=== PATIENT | male | born 1985 | race Two or more races ===

== ENCOUNTER 2018-08-16 15:38 | Inpatient (IN) | payer OTHER ==
[2018-08-16] MEDS ORDERED: SODIUM CHLORIDE 1,000 ML IV STA (16:25)
[2018-08-16] MEDS ORDERED: ONDANSETRON 4 MG/2 ML VIAL IVPUSH ONE (16:25)
[2018-08-16] MEDS ORDERED: MAG HYDROX/AL HYDROX/SIMETH 30 ML UNIT-DOSE CUP PO ONE (16:25)
[2018-08-16] MEDS ORDERED: FAMOTIDINE 20 MG/50 ML IVPB 20 MG/50 ML MG IVPB ONE ×2 (16:25→16:32)
--- NOTE | 2018-08-16 16:25 | PDOC ---
History of Present Illness - General Chief Complaint: Pain Stated Complaint: PAIN Time Seen by Provider: 08/16/18 16:06 History Source: Patient - History of Present Illness Quality: reports: severe Past History - Past Medical History Allergies/Adverse Reactions: Allergies Allergy/AdvReac Type Severity Reaction Status Date / Time No Known Allergies Allergy Verified 08/16/18 15:47 Home Medications: Ambulatory Orders Amoxicillin/Potassium Clav [Augmentin 875-125 Tablet] 1 each PO BID #10 tablet 08/18/18 COPD: No - Suicide/Smoking/Psychosocial Hx Smoking History: Never smoked Review of Systems - Review of Systems Constitutional: No: Chills, Fever Respiratory: No: Shortness of Breath Cardiac (ROS): No: Chest Pain ABD/GI: Yes: Nausea, Vomiting. No: Constipated, Diarrhea, Rectal Bleeding, Tarry Stools : No: Dysuria Musculoskeletal: No: Back Pain *Physical Exam - Vital Signs Last Vital Signs Temp Pulse Resp BP Pulse Ox 98 F 78 18 147/78 100 08/16/18 15:44 08/16/18 15:44 08/16/18 15:44 08/16/18 15:44 08/16/18 15:44 - Physical Exam Comments: 08/16/18 17:01 Pt appears pale and very uncomfortable General Appearance: Yes: Appropriately Dressed, Severe Distress HEENT: positive: Normal Voice Neck: positive: Supple Respiratory/Chest: positive: Lungs Clear, Normal Breath Sounds. negative: Respiratory Distress Cardiovascular: positive: Regular Rate, S1, S2 Gastrointestinal/Abdominal: positive: Normal Bowel Sounds, Tender (isg tto to mid upper abd, NT over RUQ and RLQ). negative: Distended, Guarding Male Genitalia: positive: normal genitalia. negative: discharge, testicular tenderness, testicular mass Musculoskeletal: negative: CVA Tenderness Integumentary: positive: Dry, Warm Neurologic: positive: Fully Oriented, Alert, Normal Mood/Affect Moderate Sedation - Procedure Monitoring Vital Signs: Procedure Monitoring Vital Signs Temperature 98 F 08/16/18 15:44 Pulse Rate 78 08/16/18 15:44 Respiratory Rate 18 08/16/18 15:44 Blood Pressure 147/78 08/16/18 15:44 O2 Sat by Pulse Oximetry (%) 100 08/16/18 15:44 ED Treatment Course - LABORATORY CBC & Chemistry Diagram: 08/18/18 06:00 03/19/19 06:00 Medical Decision Making - Medical Decision Making 08/16/18 16:57 42-year-old male, no significant history here with severe upper abdominal pain that started one hour after eating a pastrami sandwich today. Has had about 7 episodes of nausea, vomiting. No hematemesis, diarrhea, constipation, melena, bright blood per rectum, dysuria, testicular pain, swelling, discharge fever or chills. No history of similar episode. Denies excessive alcohol or NSAID use see exam Possible gastritis/GERD, vs biliary source vs pancreatitis vs appy (though NT over mcburneys), perf viscous considered given degree of discomfort/pale skin Stable w/ sig ttp to mid upper abd -pain control -zofran -IVF -labs -KUB -?US or CT -dispo pending w/u 08/16/18 17:33 WBC 16.7 Pt continues c/o pain despite attempt at pain control. CT pening, continue to manage pain 08/16/18 19:00 Per radiology staff, IV machine is down and unable to administer IV contrast to pts at this time. Discussed with Dr. Reyes, who recommends dry CT at this time. Patient signed out to [facility] Angel pending CT *DC/Admit/Observation/Transfer Diagnosis at time of Disposition: Acute appendicitis - Discharge Dispostion Condition at time of disposition: Stable - Referrals - Patient Instructions - Post Discharge Activity
[2018-08-16] MEDS ORDERED: ONDANSETRON 4 MG/2 ML VIAL ONE (16:32)
[2018-08-16 16:44] LABS: BASO % 0.2 % (0-2.0); EOS % 0.5 % (0-4.5); HEMATOCRIT 44.9 % (35.4-49); HEMOGLOBIN 15.7 GM/dL (11.7-16.9); LYMPH % 9.4 % (8-40); MCH 32.1 pg (25.7-33.7); MCHC 35.1 g/dl (32.0-35.9); MEAN CELL VOLUME 91.6 fl (80-96); MEAN PLT VOLUME 9.5 fl (7.5-11.1); MONO % 2.8 % (3.8-10.2); NEUT % 87.1 % (42.8-82.8); PLATELET COUNT 237 K/MM3 (134-434); RDW 13.1 % (11.9-15.9); WHITE BLOOD COUNT 16.7 K/mm3 (4.0-10.0)
[2018-08-16 17:20] LABS: ALBUMIN 4.4 g/dl (3.4-5.0); ALK PHOS 112 U/L (45-117); ANION GAP 7 MMOL/L (8-16); BILIRUBIN,TOTAL 0.4 mg/dL (0.2-1); BLOOD UREA NITROGEN 24 mg/dL (7-18); CALCIUM 8.8 mg/dL (8.5-10.1); CHLORIDE 107 mmol/L (98-107); CO2 27 mmol/L (21-32); CREATININE 0.8 mg/dL (0.55-1.3); GLUCOSE,RANDOM 154 mg/dL (74-106); LIPASE 106 U/L (73-393); POTASSIUM 4.2 mmol/L (3.5-5.1); SGOT/AST 26 U/L (15-37); SGPT/ALT 62 U/L (13-61); SODIUM 140 mmol/L (136-145); TOT PROT 8.1 g/dl (6.4-8.2)
[2018-08-16] MEDS ORDERED: morphine CARPU-JECT 4 MG/1 ML DISP.SYRIN IVPUSH ONE (17:31)
[2018-08-16] MEDS ORDERED: morphine SULFATE 4 MG/ML VIAL ONE (17:33)
[2018-08-16] MEDS ORDERED: MAG HYDROX/AL HYDROX/SIMETH 30 ML UNIT-DOSE CUP ONE (18:40)
[2018-08-16 20:20] LABS: URINE APPEARANCE CLEAR; URINE BILIRUBIN NEGATIVE (<2.0 mg/dL); URINE COLOR LTYELLOW; URINE GLUCOSE (UA) NEGATIVE (NEGATIVE); URINE KETONE NEGATIVE (NEGATIVE); URINE LEUK ESTERASE NEGATIVE (NEGATIVE); URINE NITRITE NEGATIVE (NEGATIVE); URINE PROTEIN NEGATIVE (NEGATIVE); URINE UROBILINOGEN NEGATIVE mg/dL (0.2-1.0)
--- NOTE | 2018-08-16 20:44 | PN ---
Teaching Attending Note Name of Resident: Nathaniel Bermeo ATTENDING PHYSICIAN STATEMENT I saw and evaluated the patient. I reviewed the resident's note and discussed the case with the resident. I agree with the resident's findings and plan as documented. SUBJECTIVE: Patient is a 42-year-old man with no significant PMH who presents with severe periumblical and suprapubic abdominal pain that started one hour after eating a pastrami sandwich today. Has had about 7 episodes of nausea and vomiting. His pain was not relieved by bowel movement. No hematemesis, diarrhea, constipation , melena, bright blood per rectum, dysuria, testicular pain, swelling, discharge fever or chills. No history of similar episode. Denies excessive alcohol or NSAID use. CT scan of the abdomen was done without contrast because the contrast injector is not working. OBJECTIVE: Alert Vital Signs Period Temp Pulse Resp BP Sys/Benz Pulse Ox Last 24 Hr 97.7 F-98 F 69-78 16-18 126-147/75-78 98-100 HEENT: No Jaundice, eye redness or discharge, PERRLA, EOMI. Normocephalic, atraumatic. External ears are normal and hearing is grossly intact. No nasal discharge. Neck: Supple, nontender. No palpable adenopathy or thyromegaly. No JVD Chest: Good effort. Clear to auscultation and percussion. Heart: Regular. No S3, rub or murmur Abdomen: Not distended, soft, periumblical and suprapubic tenderness and no HSM. No rebound or guarding. Normal bowel sounds. Ext: Peripheral pulses intact. No leg edema. Skin: Warm and dry. No petechiae, rash or ecchymosis. Neuro: Alert. Oriented x3. CN 2-12 grossly intact. Sensation grossly intact in all four extremities and DTR are symmetric. Psych: Appropriate mood and affect. Good insight. Current Medications Generic Name Dose Route Start Last Admin Trade Name Freq PRN Reason Stop Dose Admin Ceftriaxone Sodium 1 gm/ 50 mls @ 100 mls/hr 08/16/18 20:45 Dextrose IVPB DAILY LEANNA Metronidazole 500 mg in 100 mls @ 100 mls/hr 08/16/18 21:00 Flagyl 500mg Premixed Ivpb - IVPB Q6H-IV LEANNA Abnormal Lab Results 08/16/18 08/16/18 16:30 16:30 WBC 16.7 H Absolute Neuts (auto) 14.5 H Neutrophils % 87.1 H Monocytes % 2.8 L Anion Gap 7 L BUN 24 H Random Glucose 154 H ALT 62 H ASSESSMENT AND PLAN: 1. Abdominal pain - CT scan of the abdomen with out contrast has features consistent with acute appendicitis. Patient being kept NPO, started on IV Flagyl and Rocephin. EKG and INR pending. IV NS at 75 ml/hour and IV morphine for pain control. Surgery consulted. Has strong family history of DM (mother and sister) so will check HA1c. 2. Obesity Counseled on the risks associated with obesity. Will provide patient all the necessary assistance, counseling and positive reinforcement to facilitate weight loss. Consult supervisor press room. 3. DVT prophylaxis - Lovenox 40 mg SQ q 24 hours. 4. Advance directives - Full code
--- NOTE | 2018-08-16 20:44 | HP ---
CHIEF COMPLAINT: sever abdominal pain with N/V PCP:None HISTORY OF PRESENT ILLNESS: 32 year old male with no pmhx and no PCP presented with sever lisa umbilical pain 11/09 started around 3 pm , with sever nausea and NBNB vomiting , started after pasterma sandwich , the pain is local non radiating , no fever but report chills Denies any history of constipation, diarrhea , back pain , joint pain , headache , chest pain , sob, coughing or any sick contact no previous history , no sick contact or recent travel ER course was notable for: (1)CT Abdomen without contrast as IV machine is not working (2)CBC, CMP (3)Surgery consult Recent Travel: denies PAST MEDICAL HISTORY: None PAST SURGICAL HISTORY: left thumb surgery Social History: Smoking:denies Alcohol:socially Drugs: denies Family History: Mother and sister with DM Allergies No Known Allergies Allergy (Verified 08/16/18 15:47) HOME MEDICATIONS: REVIEW OF SYSTEMS CONSTITUTIONAL: Absent: fever, chills, diaphoresis, generalized weakness, malaise, loss of appetite, weight change HEENT: Absent: rhinorrhea, nasal congestion, throat pain, throat swelling, difficulty swallowing, mouth swelling, ear pain, eye pain, visual changes CARDIOVASCULAR: Absent: chest pain, syncope, palpitations, irregular heart rate, lightheadedness , peripheral edema RESPIRATORY: Absent: cough, shortness of breath, dyspnea with exertion, orthopnea, wheezing, stridor, hemoptysis GASTROINTESTINAL: Absent: abdominal pain, abdominal distension, nausea, vomiting, diarrhea, constipation, melena, hematochezia GENITOURINARY: Absent: dysuria, frequency, urgency, hesitancy, hematuria, flank pain, genital pain MUSCULOSKELETAL: Absent: myalgia, arthralgia, joint swelling, back pain, neck pain SKIN: Absent: rash, itching, pallor HEMATOLOGIC/IMMUNOLOGIC: Absent: easy bleeding, easy bruising, lymphadenopathy, frequent infections ENDOCRINE: Absent: unexplained weight gain, unexplained weight loss, heat intolerance, cold intolerance NEUROLOGIC: Absent: headache, focal weakness or paresthesias, dizziness, unsteady gait, seizure, mental status changes, bladder or bowel incontinence PSYCHIATRIC: Absent: anxiety, depression, suicidal or homicidal ideation, hallucinations. PHYSICAL EXAMINATION Vital Signs - 24 hr 08/16/18 08/16/18 15:44 20:05 Temperature 98 F 97.7 F Pulse Rate 78 Pulse Rate [ 69 Left Radial] Respiratory 18 16 Rate Blood Pressure 147/78 Blood Pressure 126/75 [Left Arm] O2 Sat by Pulse 100 98 Oximetry (%) GENERAL: AAOx3 in NAD HEAD: NC/AT EYES: EOMI, Conjunctiva clear, sclera anicteric ENT: moist mucous membrane NECK: Supple, no JVD LUNGS: CTA B/L, no crackles no wheezing no accessory muscle use. HEART: RRR, NSR, normal s1, s2, murmur no M/R/G ABDOMEN: Soft, ND, lisa umbilical pain and suprapubic tenderness, +BS 4 Q, no CVA Tenderness, Pswas negative LOWER EXTREMITIES: no edema, +2DP pulse, NEUROLOGICAL: No focal deficit. Normal speech. gait not observed. PSYCHIATRIC: Cooperative. Good eye contact. Appropriate mood and affect. SKIN: Warm, dry, Laboratory Results - last 24 hr 08/16/18 08/16/18 08/16/18 16:30 16:30 20:05 WBC 16.7 H RBC 4.90 Hgb 15.7 Hct 44.9 MCV 91.6 MCH 32.1 MCHC 35.1 RDW 13.1 Plt Count 237 MPV 9.5 Absolute Neuts (auto) 14.5 H Neutrophils % 87.1 H Lymphocytes % 9.4 Monocytes % 2.8 L Eosinophils % 0.5 Basophils % 0.2 Nucleated RBC % 0 Sodium 140 Potassium 4.2 Chloride 107 Carbon Dioxide 27 Anion Gap 7 L BUN 24 H Creatinine 0.8 Creat Clearance w eGFR 110.66 Random Glucose 154 H Calcium 8.8 Total Bilirubin 0.4 AST 26 ALT 62 H Alkaline Phosphatase 112 Total Protein 8.1 Albumin 4.4 Lipase 106 Urine Color Ltyellow Urine Appearance Clear Urine pH 6.0 Ur Specific [place] 1.020 Urine Protein Negative Urine Glucose (UA) Negative Urine Ketones Negative Urine Blood Negative Urine Nitrite Negative Urine Bilirubin Negative Urine Urobilinogen Negative Ur Leukocyte Esterase Negative CBC, BMP 08/16/18 16:30 08/16/18 16:30 ASSESSMENT/PLAN: 32 year old male with no PMhx and no PCP presented with periumbilical pain with N/V x5 admitted for acute appendicities #Abdominal pain due to Acute appendicites * Periumbilical pain , with N/V , WBC 16.7 , no fever * CT A/P without contrast noticed on imaging rehabilitation therapy technician * NPO * Type and screen * PT, PTT * EKG * CXR * IV fluids RL @ 125 * Surgery consulted , OR in AM * Morphine for pain * Zofran for Nausea # Elevated blood sugar * check A1c * BGM ACHS # FEN * F: LR@ 125 * E: monitor * N: NPO # DVTS: SCDS ; Hep SQ TID stop in AM for Surgery # Dispo * Med surg # Full code Visit type - Emergency Visit Emergency Visit: Yes Care time: The patient presented to the Emergency Department on the above date and was hospitalized for further evaluation of their emergent condition. - New Patient This patient is new to me today: Yes Date on this admission: 08/16/18 - Critical Care Critical Care patient: No
[2018-08-16] MEDS ORDERED: CEFTRIAXONE 1 GM/50 ML BAG ONE (21:05)
[2018-08-16] MEDS: CEFTRIAXONE 1 GM in DEXTROSE 5%-WATER - 50 ML IVPB SCH (21:10)
[2018-08-16] MEDS ORDERED: ONDANSETRON 4 MG/2 ML VIAL IVPUSH PRN (21:19)
--- NOTE | 2018-08-16 21:43 | PDOC ---
*Physical Exam - Vital Signs Last Vital Signs Temp Pulse Resp BP Pulse Ox 97.7 F 69 16 126/75 98 08/16/18 20:05 08/16/18 20:05 08/16/18 20:05 08/16/18 20:05 08/16/18 20:05 ED Treatment Course - LABORATORY CBC & Chemistry Diagram: 08/16/18 16:30 08/16/18 16:30 - ADDITIONAL ORDERS Additional order review: Laboratory Results 08/16/18 08/16/18 20:05 16:30 Sodium 140 Potassium 4.2 Chloride 107 Carbon Dioxide 27 Anion Gap 7 L BUN 24 H Creatinine 0.8 Creat Clearance w eGFR 110.66 Random Glucose 154 H Calcium 8.8 Total Bilirubin 0.4 AST 26 ALT 62 H Alkaline Phosphatase 112 Total Protein 8.1 Albumin 4.4 Lipase 106 Urine Color Ltyellow Urine Appearance Clear Urine pH 6.0 Ur Specific [place] 1.020 Urine Protein Negative Urine Glucose (UA) Negative Urine Ketones Negative Urine Blood Negative Urine Nitrite Negative Urine Bilirubin Negative Urine Urobilinogen Negative Ur Leukocyte Esterase Negative 08/16/18 16:30 RBC 4.90 MCV 91.6 MCHC 35.1 RDW 13.1 MPV 9.5 Neutrophils % 87.1 H Lymphocytes % 9.4 Monocytes % 2.8 L Eosinophils % 0.5 Basophils % 0.2 - Medications Given in the ED: ED Medications Discontinued Medications Generic Name Dose Route Start Last Admin Trade Name Butchq PRN Reason Stop Dose Admin Al Hydroxide/Mg Hydroxide 30 ml 08/16/18 16:25 08/16/18 18:37 Mylanta Oral Suspension - PO 08/16/18 16:26 30 ml ONCE ONE Administration Famotidine/Sodium Chloride 20 mg in 50 mls @ 100 mls/hr 08/16/18 16:25 16:41 Pepcid 20 Mg Premixed Ivpb - IVPB 08/16/18 16:54 100 mls/hr ONCE ONE Administration Sodium Chloride 1,000 mls @ 1,000 mls/hr 08/16/18 16:25 08/16/18 16:41 Normal Saline - IV 08/16/18 17:24 1,000 mls/hr ASDIR STA Administration Morphine Sulfate 4 mg 08/16/18 17:31 08/16/18 17:42 Morphine Injection - IVPUSH 08/16/18 17:32 4 mg ONCE ONE Administration Ondansetron HCl 4 mg 08/16/18 16:25 08/16/18 16:41 Zofran Injection IVPUSH 08/16/18 16:26 4 mg ONCE ONE Administration Medical Decision Making - Medical Decision Making 08/16/18 21:35 Patient endoresed to me to follow the CT scan CT scan reviewed impression: Appendicolith noted at the level of the neck of the appendix. The appendix is distended with fluid with a secondary small non-obstructing appendicolith also noted. No periappendiceal inflammatory changes evident. No extra Lumenator ear or abscess formation identified. Findings concerning for early acute appendicitis with tubular mucocele related to obstructing appendicolith. Clinical correlation advised. Surgery consulted case was discussed with Dr. Roth. He will put orders for antibiotics. Recommend that patient be admitted to the hospitalist on nothing by mouth after midnight for surgery in the morning. *DC/Admit/Observation/Transfer Diagnosis at time of Disposition: Acute appendicitis Qualifiers: Acute appendicitis type: unspecified acute appendicitis type Qualified Code(s) : K35.80 - Unspecified acute appendicitis - Discharge Dispostion Condition at time of disposition: Stable Decision to Admit order: Yes - Referrals - Patient Instructions - Post Discharge Activity
[2018-08-16] MEDS: LACTATED RINGERS SOLUTION 1,000 ML IV SCH (22:53)
[2018-08-17 00:58] VITALS: BMI 34.7
[2018-08-17] MEDS: LACTATED RINGERS SOLUTION 1,000 ML IV SCH ×2 (01:42→10:19)
[2018-08-17] MEDS: MORPHINE SULFATE 2 MG/ML VIAL IVPUSH PRN ×2 (03:45→10:27)
[2018-08-17] MEDS: HEPARIN NA (PORCINE) 5,000 UNITS/ML 1ML VIAL SQ SCH ×3 (05:57→22:13)
[2018-08-17 07:49] LABS: BASO % 0.2 % (0-2.0); EOS % 0.1 % (0-4.5); HEMATOCRIT 39.9 % (35.4-49); LYMPH % 6.7 % (8-40); MCH 31.5 pg (25.7-33.7); MCHC 35.1 g/dl (32.0-35.9); MEAN CELL VOLUME 89.8 fl (80-96); MEAN PLT VOLUME 8.9 fl (7.5-11.1); MONO % 6.5 % (3.8-10.2); NEUT % 86.5 % (42.8-82.8); PLATELET COUNT 216 K/MM3 (134-434); RBC 4.44 M/mm3 (4.00-5.60); RDW 12.9 % (11.9-15.9); WHITE BLOOD COUNT 18.7 K/mm3 (4.0-10.0)
[2018-08-17 08:22] LABS: ALBUMIN 3.9 g/dl (3.4-5.0); ALK PHOS 98 U/L (45-117); AMYLASE 48 U/L (25-115); ANION GAP 7 MMOL/L (8-16); BILIRUBIN,TOTAL 0.5 mg/dL (0.2-1); BLOOD UREA NITROGEN 13 mg/dL (7-18); CALCIUM 8.5 mg/dL (8.5-10.1); CHLORIDE 106 mmol/L (98-107); CO2 24 mmol/L (21-32); CREATININE 0.7 mg/dL (0.55-1.3); GLUCOSE,RANDOM 133 mg/dL (74-106); LIPASE 101 U/L (73-393); MAGNESIUM 2.1 mg/dL (1.8-2.4); PHOSPHOROUS 3.2 mg/dL (2.5-4.9); POTASSIUM 3.7 mmol/L (3.5-5.1); SGOT/AST 14 U/L (15-37); SGPT/ALT 47 U/L (13-61); SODIUM 137 mmol/L (136-145); TOT PROT 7.1 g/dl (6.4-8.2)
[2018-08-17 08:23] LABS: INR 1.1 (0.83-1.09)
[2018-08-17 08:26] LABS: ACTIVATED PTT 32.6 SECONDS (25.2-36.5)
[2018-08-17] MEDS ORDERED: cefTRIAXone SODIUM 1 GM VIAL ONE (08:53)
[2018-08-17] MEDS ORDERED: DEXTROSE 5%-WATER - 50 ML IVPB ONE (08:53)
[2018-08-17] MEDS ORDERED: FLU VACCINE QUAD 60 MCG/0.5 ML (MDV 18-19) IM ONE (10:00)
[2018-08-17] MEDS ORDERED: PNEUMOC 13-VAL CONJ-DIP CRM/PF 0.5 ML DISP.SYRIN IM ONE (10:00)
[2018-08-17] MEDS ORDERED: PNEUMOCOCCAL 23 VACCINE 0.5 ML VIAL IM ONE (10:00)
[2018-08-17] MEDS ORDERED: CEFTRIAXONE 1 GM in DEXTROSE 5%-WATER - 100 ML IVPB SCH (10:00)
[2018-08-17] MEDS: CEFTRIAXONE 1 GM in DEXTROSE 5%-WATER - 50 ML IVPB SCH (10:19)
[2018-08-17] MEDS ORDERED: ONDANSETRON 4 MG/2 ML VIAL IVPUSH PRN ×3 (11:43→16:42)
[2018-08-17] MEDS ORDERED: LACTATED RINGERS SOLUTION 1,000 ML IV SCH ×3 (11:45→16:42)
[2018-08-17] MEDS ORDERED: PROPOFOL 20 ML ONE ×2 (12:07→14:20)
[2018-08-17] MEDS ORDERED: fentaNYL CITRATE 250 MCG/5 ML VIAL ONE (12:07)
[2018-08-17] MEDS ORDERED: MIDAZOLAM HCL 2 MG/2 ML SINGLE DOSE VIAL ONE ×2 (12:07→14:21)
[2018-08-17] MEDS ORDERED: ROCURONIUM BROMIDE 50 MG/5 ML VIAL ONE ×2 (12:07→14:20)
[2018-08-17] MEDS ORDERED: LIDOCAINE HCL/PF 2% SDV 5ML VIAL ONE (12:08)
[2018-08-17] MEDS ORDERED: DEXAMETHASONE SOD PHOSPHATE 4 MG/1 ML VIAL ONE ×3 (12:08→15:32)
[2018-08-17] MEDS ORDERED: BUPIVACAINE HCL/PF 0.5% (5MG/ML) 10 ML VIAL IJ ONE (13:04)
[2018-08-17] MEDS ORDERED: BUPIVACAINE HCL/PF 0.5% (5MG/ML) 10 ML VIAL ONE (14:12)
--- NOTE | 2018-08-17 14:15 | PN ---
Physical Exam: SUBJECTIVE: Patient seen and examined at bedside no acute events overnight patient states he is having 7/10 pain and slgiht nausea; denies any CP/SOB/F or chills OBJECTIVE: Vital Signs Period Temp Pulse Resp BP Sys/Benz Pulse Ox Last 24 Hr 97.5 F-98.5 F 63-78 16-20 110-147/61-80 96-100 GENERAL: The patient is awake, alert, and fully oriented, in no acute distress. EYES: PEERLA: EOMI; no scleral icterus NECK: no JVD; no lymphadenopathy LUNGS: CTA B/L; no rales, rhonchi or wheezing HEART: Regular rate and rhythm, S1, S2 without murmur, rub or gallop. ABDOMEN: Soft, RLQ tenderness upon palpationl + rovisngs +BS. EXTREMITIES: 2+ pulses, warm, well-perfused, no edema. PSYCH: Normal mood, normal affect. SKIN: Warm, dry, normal turgor, no rashes or lesions noted Laboratory Results - last 24 hr 08/16/18 08/16/18 08/16/18 16:30 16:30 20:05 WBC 16.7 H RBC 4.90 Hgb 15.7 Hct 44.9 MCV 91.6 MCH 32.1 MCHC 35.1 RDW 13.1 Plt Count 237 MPV 9.5 Absolute Neuts (auto) 14.5 H Neutrophils % 87.1 H Lymphocytes % 9.4 Monocytes % 2.8 L Eosinophils % 0.5 Basophils % 0.2 Nucleated RBC % 0 PT with INR INR PTT (Actin FS) Sodium 140 Potassium 4.2 Chloride 107 Carbon Dioxide 27 Anion Gap 7 L BUN 24 H Creatinine 0.8 Creat Clearance w eGFR 110.66 POC Glucometer Random Glucose 154 H Hemoglobin A1c % Calcium 8.8 Phosphorus Magnesium Total Bilirubin 0.4 AST 26 ALT 62 H Alkaline Phosphatase 112 Total Protein 8.1 Albumin 4.4 Total Amylase Lipase 106 Urine Color Ltyellow Urine Appearance Clear Urine pH 6.0 Ur Specific [place] 1.020 Urine Protein Negative Urine Glucose (UA) Negative Urine Ketones Negative Urine Blood Negative Urine Nitrite Negative Urine Bilirubin Negative Urine Urobilinogen Negative Ur Leukocyte Esterase Negative Blood Type Antibody Screen 08/17/18 08/17/18 08/17/18 06:00 06:40 06:40 WBC 18.7 H RBC 4.44 Hgb 14.0 Hct 39.9 MCV 89.8 MCH 31.5 MCHC 35.1 RDW 12.9 Plt Count 216 MPV 8.9 Absolute Neuts (auto) 16.2 H Neutrophils % 86.5 H Lymphocytes % 6.7 L D Monocytes % 6.5 D Eosinophils % 0.1 Basophils % 0.2 Nucleated RBC % 0 PT with INR INR PTT (Actin FS) Sodium Potassium Chloride Carbon Dioxide Anion Gap BUN Creatinine Creat Clearance w eGFR POC Glucometer 124 Random Glucose Hemoglobin A1c % 6.0 Calcium Phosphorus Magnesium Total Bilirubin AST ALT Alkaline Phosphatase Total Protein Albumin Total Amylase Lipase Urine Color Urine Appearance Urine pH Ur Specific [place] Urine Protein Urine Glucose (UA) Urine Ketones Urine Blood Urine Nitrite Urine Bilirubin Urine Urobilinogen Ur Leukocyte Esterase Blood Type Antibody Screen 08/17/18 08/17/18 08/17/18 06:40 06:40 06:40 WBC RBC Hgb Hct MCV MCH MCHC RDW Plt Count MPV Absolute Neuts (auto) Neutrophils % Lymphocytes % Monocytes % Eosinophils % Basophils % Nucleated RBC % PT with INR 13.00 INR 1.10 H PTT (Actin FS) 32.6 Sodium 137 Potassium 3.7 Chloride 106 Carbon Dioxide 24 Anion Gap 7 L BUN 13 Creatinine 0.7 Creat Clearance w eGFR 129.09 POC Glucometer Random Glucose 133 H Hemoglobin A1c % Calcium 8.5 Phosphorus 3.2 Magnesium 2.1 Total Bilirubin 0.5 AST 14 L ALT 47 Alkaline Phosphatase 98 Total Protein 7.1 Albumin 3.9 Total Amylase 48 Lipase 101 Urine Color Urine Appearance Urine pH Ur Specific [place] Urine Protein Urine Glucose (UA) Urine Ketones Urine Blood Urine Nitrite Urine Bilirubin Urine Urobilinogen Ur Leukocyte Esterase Blood Type O POSITIVE Antibody Screen Negative 08/17/18 09:32 WBC RBC Hgb Hct MCV MCH MCHC RDW Plt Count MPV Absolute Neuts (auto) Neutrophils % Lymphocytes % Monocytes % Eosinophils % Basophils % Nucleated RBC % PT with INR INR PTT (Actin FS) Sodium Potassium Chloride Carbon Dioxide Anion Gap BUN Creatinine Creat Clearance w eGFR POC Glucometer Random Glucose Hemoglobin A1c % Calcium Phosphorus Magnesium Total Bilirubin AST ALT Alkaline Phosphatase Total Protein Albumin Total Amylase Lipase Urine Color Urine Appearance Urine pH Ur Specific [place] Urine Protein Urine Glucose (UA) Urine Ketones Urine Blood Urine Nitrite Urine Bilirubin Urine Urobilinogen Ur Leukocyte Esterase Blood Type O POSITIVE Antibody Screen Active Medications Generic Name Dose Route Start Last Admin Trade Name Freq PRN Reason Stop Dose Admin Fentanyl 50 mcg 08/17/18 11:43 Sublimaze Injection - IVPUSH [id number] PRN PAIN-PACU ORDER X 4 DOSES ONLY Heparin Sodium (Porcine) 5,000 unit 08/17/18 06:00 08/17/18 05:57 Heparin - SQ Not Given TID LEANNA Ceftriaxone Sodium 1 gm/ 50 mls @ 100 mls/hr 08/16/18 20:45 08/17/18 10:19 Dextrose IVPB 100 mls/hr DAILY LEANNA Administration Metronidazole 500 mg in 100 mls @ 100 mls/hr 08/16/18 21:00 08/17/18 09:09 Flagyl 500mg Premixed Ivpb - IVPB 100 mls/hr Q6H-IV LEANNA Administration Lactated Ringer's 1,000 mls @ 125 mls/hr 08/16/18 21:30 08/17/18 10:19 Lactated Ringers Solution IV 125 mls/hr ASDIR LEANNA Administration Lactated Ringer's 1,000 mls @ 75 mls/hr 08/17/18 11:45 Lactated Ringers Solution IV ASDIR LEANNA Morphine Sulfate 2 mg 08/16/18 21:19 08/17/18 10:27 Morphine Sulfate IVPUSH 2 mg Q4H PRN Administration PAIN LEVEL 6-10 Ondansetron HCl 4 mg 08/16/18 21:19 Zofran Injection IVPUSH Q6H PRN NAUSEA Ondansetron HCl 4 mg 08/17/18 11:43 Zofran Injection IVPUSH Q6H PRN NAUSEA AND/OR VOMITING ASSESSMENT/PLAN: 32 year old male with no PMhx and no PCP presented with periumbilical pain with N/V x5 admitted for acute appendicities #Abdominal pain due to Acute appendicitis * WBC this AM 18.7 * on ceftriaxone and flagyl * IV fluids RL @ 125 * Morphine for pain * Zofran for Nausea * OR this AM * # Elevated blood sugar * check A1c - came back at 6 * BGM ACHS # FEN * F: LR@ 125 * E: monitor * N: NPO * # DVTS: SCDS ; Hep SQ TID stop in AM for Surgery # Dispo * Med surg # Full code Problem List - Problems (1) Appendicitis Code(s): K37 - UNSPECIFIED APPENDICITIS Visit type - Emergency Visit Emergency Visit: Yes ED Registration Date: 08/16/18 Care time: The patient presented to the Emergency Department on the above date and was hospitalized for further evaluation of their emergent condition. - New Patient This patient is new to me today: Yes Date on this admission: 08/17/18 - Critical Care Critical Care patient: No
[2018-08-17] MEDS ORDERED: SUCCINYLCHOLINE CHLORIDE 200 MG/10 ML VIAL ONE (14:20)
--- NOTE | 2018-08-17 15:06 | PN ---
Progress Note (short form) - Note Progress Note: surgery pt seen and examined. full consult dictated. 32m admitted for acute appendicitis. wbc 16, started on rocephin, wbc 18 today. still with pain. no fever. abd- soft, mild distension, localized rlq tenderness. Plan- acute appendicitis. minimal response to abx. will proceed with surgery.
[2018-08-17] MEDS ORDERED: morphine SULFATE 4 MG/ML VIAL IVPB PRN (15:08)
[2018-08-17] MEDS ORDERED: ACETAMINOPHEN 325 MG TABLET (FP) PO PRN (15:08)
[2018-08-17] MEDS ORDERED: oxyCODONE HCL 5 MG TABLET PO PRN (15:08)
[2018-08-17] MEDS ORDERED: IBUPROFEN 800 MG/8 ML IJ IVPB PRN (15:09)
--- NOTE | 2018-08-17 15:11 | OP ---
Operative Note - Note: Operative Date: 08/17/18 Pre-Operative Diagnosis: acute appendicitis Operation: laparoscopic appendectomy, lavage Findings: suppurative appendicitis Post-Operative Diagnosis: Same as Pre-op Surgeon: Tye Schwartz Anesthesiologist/[facility] DIRECTOR: Reynaldo Abad Anesthesia: General Specimens Removed: appendix Estimated Blood Loss (mls): 10 Operative Report Dictated: Yes
[2018-08-17] MEDS ORDERED: KETOROLAC TROMETHAMINE 30 MG/1 ML VIAL ONE (15:41)
[2018-08-17] MEDS ORDERED: GLYCOPYRROLATE 0.2 MG/1 ML VIAL ONE (15:57)
--- NOTE | 2018-08-17 16:02 | PN ---
Progress Note (short form) - Note Progress Note: surgery s/p laparoscopic appendectomy. full liquids. cont iv abx. if patient tolerates diet without fever can likely be discharged Friday with 5 days aumentin on a regular diet. ok to shower. no lifting. 2 weeks off work. f/u in 2 weeks. [phone]
--- NOTE | 2018-08-17 17:43 | PN ---
Teaching Attending Note Name of Resident: Monique Aaron ATTENDING PHYSICIAN STATEMENT I saw and evaluated the patient. I reviewed the resident's note and discussed the case with the resident. I agree with the resident's findings and plan as documented. SUBJECTIVE: Patient is comfortable with no acute distress. mild pain , no fever or chills. no shortness of breath. OBJECTIVE: Vital Signs Temperature 98.1 F 08/17/18 16:11 Pulse Rate 73 08/17/18 17:40 Respiratory Rate 18 08/17/18 17:40 Blood Pressure 102/59 L 08/17/18 17:40 O2 Sat by Pulse Oximetry (%) 96 08/17/18 17:40 GENERAL: The patient is awake, alert, and fully oriented, in no acute distress. EYES: PEERLA: EOMI; no scleral icterus NECK: no JVD; no lymphadenopathy LUNGS: CTA B/L; no rales, rhonchi or wheezing HEART: Regular rate and rhythm, S1, S2 without murmur, rub or gallop. ABDOMEN: Soft, mild RLQ tenderness on palpation. l EXTREMITIES: 2+ pulses, warm, well-perfused, no edema. PSYCH: Normal mood, normal affect. SKIN: Warm, dry, normal turgor, no rashes or lesions notedCBCD WBC 18.7 K/mm3 (4.0-10.0) H 08/17/18 06:40 RBC 4.44 M/mm3 (4.00-5.60) 08/17/18 06:40 Hgb 14.0 GM/dL (11.7-16.9) 08/17/18 06:40 Hct 39.9 % (35.4-49) 08/17/18 06:40 MCV 89.8 fl (80-96) 08/17/18 06:40 MCHC 35.1 g/dl (32.0-35.9) 08/17/18 06:40 RDW 12.9 % (11.9-15.9) 08/17/18 06:40 Plt Count 216 K/MM3 (134-434) 08/17/18 06:40 MPV 8.9 fl (7.5-11.1) 08/17/18 06:40 CMP Sodium 137 mmol/L (136-145) 08/17/18 06:40 Potassium 3.7 mmol/L (3.5-5.1) 08/17/18 06:40 Chloride 106 mmol/L (98-107) 08/17/18 06:40 Carbon Dioxide 24 mmol/L (21-32) 08/17/18 06:40 Anion Gap 7 MMOL/L (8-16) L 08/17/18 06:40 BUN 13 mg/dL (7-18) 08/17/18 06:40 Creatinine 0.7 mg/dL (0.55-1.3) 08/17/18 06:40 Creat Clearance w eGFR 129.09 (>60) 08/17/18 06:40 Random Glucose 133 mg/dL (74-106) H 08/17/18 06:40 Calcium 8.5 mg/dL (8.5-10.1) 08/17/18 06:40 Total Bilirubin 0.5 mg/dL (0.2-1) 08/17/18 06:40 AST 14 U/L (15-37) L 08/17/18 06:40 ALT 47 U/L (13-61) 08/17/18 06:40 Alkaline Phosphatase 98 U/L (45-117) 08/17/18 06:40 Total Protein 7.1 g/dl (6.4-8.2) 08/17/18 06:40 Albumin 3.9 g/dl (3.4-5.0) 08/17/18 06:40 Current Medications Generic Name Dose Route Start Last Admin Trade Name Freq PRN Reason Stop Dose Admin Acetaminophen 650 mg 08/17/18 15:08 Tylenol - PO Q4H PRN FEVER Heparin Sodium (Porcine) 5,000 unit 08/17/18 22:00 Heparin - SQ TID LEANNA Ceftriaxone Sodium 1 gm/ 50 mls @ 100 mls/hr 08/18/18 10:00 Dextrose IVPB DAILY LEANNA Metronidazole 500 mg in 100 mls @ 100 mls/hr 08/17/18 21:00 Flagyl 500mg Premixed Ivpb - IVPB Q6H-IV LEANNA Lactated Ringer's 1,000 mls @ 125 mls/hr 08/17/18 16:42 08/17/18 16:30 Lactated Ringers Solution IV 0 mls ASDIR LEANNA Administration Ibuprofen 800 mg 08/17/18 15:09 Caldolor Injection - IVPB Q8H PRN PAIN LEVEL 1 - 3 Morphine Sulfate 4 mg 08/17/18 15:08 Morphine Sulfate IVPB Q3H PRN PAIN LEVEL 7 - 10 Ondansetron HCl 4 mg 08/17/18 16:42 Zofran Injection IVPUSH Q6H PRN NAUSEA AND/OR VOMITING Oxycodone HCl 7.5 mg 08/17/18 15:08 Roxicodone - PO Q4H PRN PAIN LEVEL 4 - 6 Pantoprazole Sodium 40 mg 08/18/18 10:00 Protonix Iv IVPUSH DAILY LEANNA ASSESSMENT AND PLAN: Patient is a 32 year old male with no PMhx and no PCP presented with periumbilical pain with N/V x5 admitted for acute appendicitis #POD #1 s/p post lap. appendectomy due to appendicitis, on ceftriaxone and flagyl, zofran, morphine continue, incentive spirometer, by will discharge patient home on Augmentin 875mg po bid x 5 days # Elevated blood sugar with hgA1c of 6, sliding scale with coverage # DVTS: SCDS ; Hep SQ # Full code
--- NOTE | 2018-08-17 18:59 | CONS ---
DATE OF CONSULTATION: 08/17/2018 REASON FOR CONSULTATION: Acute appendicitis. This is an emergency room consultation as requested by the emergency room physician. The patient was subsequently admitted to the floor and is being seen and evaluated there. BRIEF HISTORY: This is a 32-year-old male who presented to [facility] Emergency Room complaining of abdominal pain for less than 1 day. He had nausea with vomiting. Denied fever or chills. Otherwise, the rest of the history was unremarkable. He was noted to have an elevated white blood cell count of 16,000. He went for a CAT scan of his abdomen and pelvis, which was consistent with acute appendicitis with an appendicolith. There was no perforation or abscess noted. He was admitted to the hospital and started on Rocephin and Flagyl antibiotic overnight. He had no fever. His pain slightly improved but did not resolve. His white blood cell count was repeated approximately 14 hours later, and it had slightly increased to 18,000. PAST MEDICAL HISTORY: Otherwise negative. PAST SURGICAL HISTORY: Only includes a finger operation. SOCIAL HISTORY: Positive for alcohol. Negative for tobacco. FAMILY HISTORY: Noncontributory. MEDICATIONS: He takes no medications. ALLERGIES: He has no known drug allergies. REVIEW OF SYSTEMS: General: Denies fatigue or malaise. Cardiac: Denies chest pain or palpitations. Respiratory: Denies shortness of breath or wheeze. Gastrointestinal: As in HPI. Denies blood in his stool. Denies diarrhea. Denies recent weight loss. Genitourinary: Denies dysuria. Musculoskeletal: Denies joint pain or joint swelling. Psychiatric: Denies anxiety, depression, or hearing voices. PHYSICAL EXAMINATION: General: This is a well-developed, well-nourished 32-year-old male in no distress. Vital Signs: He is afebrile. HEENT: His head is normocephalic. Sclerae anicteric. Neck: Supple. Chest: Clear. Abdomen: Soft. It is nondistended. There are no surgical scars. He has localized right lower quadrant tenderness without guarding, but there is mild rebound. Extremities: Trace edema. DIAGNOSTIC DATA: On review of his laboratory, his white blood cell count is 18,000. His chemistries are unremarkable. His coagulation profile is normal. His urinalysis is unremarkable. On review of his imaging, he has a CAT scan of his abdomen and pelvis, which shows a distended, fluid-filled appendix with multiple appendicoliths. There are no inflammatory changes noted. There is also noted to be fatty liver. ASSESSMENT: This is a 32-year-old male with right lower quadrant abdominal pain, nausea, vomiting, leukocytosis, right lower quadrant tenderness with rebound. CAT scan findings are concerning for acute appendicitis. PLAN: Clinically, this is acute appendicitis. I agree with admission. I agree with Rocephin and Flagyl antibiotic. At this point, there has not been much improvement with the antibiotic and actually a slight increase in his white blood cell count. At this point, we will move in the direction of surgery. Risks and benefits of surgery have been explained to the patient in detail. These are including, but not limited to, the possibility of conversion to open, possibility injury to viscera or bladder, possibility of blood loss requiring blood transfusion, possibility of future hernia, possibility of future obstruction, possibility of infection, possibility of staple line dehiscence plus a multitude of medical risks including, but not limited to, cardiac, neurologic, pulmonary, and vascular complications, even . The patient understands these risks and is agreeable to surgery. He also has been offered to continue with medical management and declines. He prefers a more definitive nature of surgery and the likely decreased length of stay as well as the ability to pathologically evaluate the appendix. Also, as far as the fatty liver noted on CAT scan, this will not be managed by the surgical service. DO OMAR EMERSON/[id number]
--- NOTE | 2018-08-17 22:47 | EKG ---
Test Reason : Blood Pressure : / mmHG Vent. Rate : 066 BPM Atrial Rate : 066 BPM P-R Int : 162 ms QRS Dur : 094 ms QT Int : 384 ms P-R-T Axes : 057 005 007 degrees QTc Int : 402 ms NORMAL SINUS RHYTHM NORMAL ECG WHEN COMPARED WITH ECG OF 16-AUG-2018 21:16, NO SIGNIFICANT CHANGE WAS FOUND Confirmed by SIVAN SALCIDO MD ([id number]) on 08/17/2018 10:47:28 PM Referred By: MARIANA SHARMA Confirmed By:SIVAN SALCIDO MD
--- NOTE | 2018-08-17 22:49 | EKG ---
Test Reason : Blood Pressure : / mmHG Vent. Rate : 064 BPM Atrial Rate : 064 BPM P-R Int : 166 ms QRS Dur : 088 ms QT Int : 392 ms P-R-T Axes : 046 017 016 degrees QTc Int : 404 ms NORMAL SINUS RHYTHM NORMAL ECG NO PREVIOUS ECGS AVAILABLE Confirmed by SIVAN SALCIDO MD ([id number]) on 08/17/2018 10:48:49 PM Referred By: Confirmed By:SIVAN SALCIDO MD
--- NOTE | 2018-08-18 00:25 | OP ---
DATE OF OPERATION: 08/17/2018 PREOPERATIVE DIAGNOSIS: Acute appendicitis. POSTOPERATIVE DIAGNOSIS: Acute appendicitis. PROCEDURE: Laparoscopic appendectomy. SURGEON: Tye Schwartz DO CERTIFIED NUCLEAR MEDICINE TECHNOLOGIST: None. ANESTHESIOLOGIST: Reynaldo Abad DO (general) INTRAOPERATIVE FINDINGS: Suppurative, nonperforated appendix. SPECIMENS: Appendix. DRAINS: None. BLOOD LOSS: Minimal. COMPLICATIONS: None. BRIEF HISTORY: This is a 32-year-old male who presented to [facility] with signs and symptoms of acute appendicitis. CAT scan supported that. He was given intravenous antibiotics and presents now for surgery. DESCRIPTION OF PROCEDURE: The patient was placed in the supine position. General anesthesia was initiated. The abdomen was prepped and draped in the sterile fashion. Alicea catheter was inserted. Next, a vertical incision was made infraumbilical with scalpel. This was carried through the skin and subcutaneous tissue. The fascia was then lifted with a George clamp and incised vertically. The peritoneum was entered bluntly. Next, a 0 Vicryl stitch was placed across the fascial defect and used to secure the Aec trocar. Pneumoperitoneum was then created, followed by insertion of a 5-mm 30-degree laparoscope. Two 5-mm trocars were then placed, 1 suprapubic and 1 left lower quadrant. Attention was turned to the right lower quadrant. The appendix was seen and was thick and inflamed and suppurative, but nonperforated. A window was made at its base. The LigaSure device was used to divide the mesoappendix from multiple welds. The Ethicon EndoGIA purple load 60-mm staple was used to divide the appendix at its base and a small portion of cecum with one firing. The staple line was inspected. It was intact. There was no bleeding. There were no breaks or signs of ischemia. The appendix was placed in a specimen bag and removed through the infraumbilical trocar site and sent to Pathology marked as specimen. A limited lavage was done and all return was clear. Pneumoperitoneum was released as the trocars were removed under direct visualization. No bleeding was noted. At this point, the fascia of the infraumbilical trocar site was closed with multiple interrupted 0 Vicryl sutures and 3 skin incisions were closed with Biosyn and a Dermabond dressing was placed. Overall the patient tolerated the procedure well. There were no complications. Blood loss was minimal. Alicea catheter was placed at the beginning of the operation and was removed at the end. DO OMAR EMERSON/[id number] MTDD
[2018-08-18] MEDS: HEPARIN NA (PORCINE) 5,000 UNITS/ML 1ML VIAL SQ SCH ×2 (06:11→13:21)
[2018-08-18 07:23] LABS: HEMATOCRIT 37.6 % (35.4-49); MCH 31.6 pg (25.7-33.7); MCHC 34.6 g/dl (32.0-35.9); MEAN CELL VOLUME 91.1 fl (80-96); MEAN PLT VOLUME 9.3 fl (7.5-11.1); PLATELET COUNT 193 K/MM3 (134-434); RBC 4.13 M/mm3 (4.00-5.60); RDW 12.9 % (11.9-15.9); WHITE BLOOD COUNT 10.4 K/mm3 (4.0-10.0)
[2018-08-18 07:29] LABS: ALBUMIN 3.2 g/dl (3.4-5.0); ALK PHOS 81 U/L (45-117); ANION GAP 6 MMOL/L (8-16); BILIRUBIN,TOTAL 0.4 mg/dL (0.2-1); BLOOD UREA NITROGEN 17 mg/dL (7-18); CALCIUM 8.3 mg/dL (8.5-10.1); CHLORIDE 109 mmol/L (98-107); CO2 25 mmol/L (21-32); CREATININE 0.7 mg/dL (0.55-1.3); GLUCOSE,RANDOM 121 mg/dL (74-106); MAGNESIUM 2.1 mg/dL (1.8-2.4); PHOSPHOROUS 3.1 mg/dL (2.5-4.9); POTASSIUM 3.9 mmol/L (3.5-5.1); SGOT/AST 11 U/L (15-37); SGPT/ALT 36 U/L (13-61); SODIUM 140 mmol/L (136-145); TOT PROT 6.4 g/dl (6.4-8.2)
[2018-08-18] MEDS ORDERED: LACTATED RINGERS SOLUTION 1,000 ML IV SCH (08:30)
[2018-08-18 08:35] VITALS: TEMP 98.6
[2018-08-18] MEDS ORDERED: cefTRIAXone SODIUM 1 GM VIAL ONE (08:55)
[2018-08-18] MEDS ORDERED: DEXTROSE 5%-WATER - 50 ML IVPB ONE (08:55)
--- NOTE | 2018-08-18 09:50 | PN ---
Progress Note (short form) - Note Progress Note: POD1 s/p lap AP under GA. Pt doing well, no pain,nausea,vomiting. No other anesthetic issues/complications
[2018-08-18] MEDS ORDERED: CEFTRIAXONE 1 GM in DEXTROSE 5%-WATER - 50 ML IVPB SCH (10:00)
[2018-08-18] MEDS ORDERED: PANTOPRAZOLE SODIUM 40 MG VIAL IVPUSH SCH (10:00)
--- NOTE | 2018-08-18 11:57 | DS ---
Physical Exam: SUBJECTIVE: Patient seen and examined at bedside no acute events overnight ; patient is feeling better; passing flatus has 3/10 pain deneis any nausea/ vomiting fever or chills OBJECTIVE: Vital Signs Period Temp Pulse Resp BP Sys/Benz Pulse Ox Last 24 Hr 97.9 F-98.6 F 69-81 16-18 92-121/41-59 94-98 PHYSICAL EXAM GENERAL: The patient is awake, alert, and fully oriented, in no acute distress. EYES: PEERLA: EOMI no scleral icterus NECK:no JVD no lymphadenopathy LUNGS: CTA B/L; no rales, rhonchi or wheezing HEART: Regular rate and rhythm, S1, S2 without murmur, rub or gallop. ABDOMEN: Soft, slight RLQ tenderness upon palpation +BS all throughout EXTREMITIES: 2+ pulses, warm, well-perfused, no edema. PSYCH: Normal mood, normal affect. SKIN: Warm, dry, normal turgor, no rashes or lesions noted. LABS Laboratory Results - last 24 hr 08/18/18 08/18/18 08/18/18 06:00 06:00 06:09 WBC 10.4 H RBC 4.13 Hgb 13.0 Hct 37.6 MCV 91.1 MCH 31.6 MCHC 34.6 RDW 12.9 Plt Count 193 MPV 9.3 Sodium 140 Potassium 3.9 Chloride 109 H Carbon Dioxide 25 Anion Gap 6 L BUN 17 Creatinine 0.7 Creat Clearance w eGFR 129.09 POC Glucometer 149 Random Glucose 121 H Calcium 8.3 L Phosphorus 3.1 Magnesium 2.1 Total Bilirubin 0.4 AST 11 L ALT 36 Alkaline Phosphatase 81 Total Protein 6.4 Albumin 3.2 L 08/18/18 11:30 WBC RBC Hgb Hct MCV MCH MCHC RDW Plt Count MPV Sodium Potassium Chloride Carbon Dioxide Anion Gap BUN Creatinine Creat Clearance w eGFR POC Glucometer 85 Random Glucose Calcium Phosphorus Magnesium Total Bilirubin AST ALT Alkaline Phosphatase Total Protein Albumin Imaging: CT Ab/Pelvis: Appendicolith noted at the level of the neck of the appendix. The appendix is distended with fluid with a secondary small non-obstructing appendicolith also noted. No periappendiceal inflammatory changes evident. No extra Lumenator ear or abscess formation identified. Findings concerning for early acute appendicitis with tubular mucocele related to obstructing appendicolith. Clinical correlation advised. HOSPITAL COURSE: Date of Admission:08/16/18 32 year old male with no pmhx and no PCP presented with severe periumbilical pain 11/09 started around 3 pm , with severe nausea and NBNB vomiting , started after pastrami sandwich , the pain is local non radiating , no fever but report chills . patient arrived to the ED was afebrile; he had an elevated WBC of 14.6 he was started on LR and ceftriaxone/flagyl- surgery was consulted. patient underwent a lap appendectomy. he was monitored overnight; his diet was advanced once he passed flatus ; he was encouraged to use incentive spirometer. he was discharged home with a 5 day course of augmentin in addition to the incentive spirometer and told to fllow up with surgeon within one week. his sugar was elevatd on admission an HBa1c was done and came back at 6- he was given advice to follow low carb/low fat diet to exercise to repeat test within three months. Date of Discharge: 08/18/18 Minutes to complete discharge: 39 Discharge Summary Reason For Visit: ACUTE APPENDICITIS Condition: Stable - Instructions Diet, Activity, Other Instructions: You came to the hospital with complaints of lower abdominal pain with multiple episodes of vomiting and were found to have appendicitis on CT scan. You underwent surgery to remove your appendix. Please take the antibiotic Augmentin 875mg orally twice a day for a total of 5 days (to be taken with food) If you have pain you can Tylenol 650mg every 6 hours only when you need it. We are referring you to a primary care physician to follow up with within one week Please follow up with the surgeon, Dr. Schwartz, within one week No heavy lifting. Keep yourself hydrated and you can return to work in 2 weeks. Please take the incentive sprirometer home with you as it will improve your breathing. Use it up to 10 times per hour. We measured your sugar level (HbA1c) and its in the pre-diabetic range (6.0) - it is very important for you to follow a low carb/low fat diet , to stay away from sugary foods and starches and to increase your exercise regimen. this number will need to be repeated in around 3 months. Avoid rice, bread, pasta as well. *if you begin to experience any worsening abdominal pain, chest pains, shortness of breath, please return to the emergency room immediately. Referrals: Yousif Warren MD [Staff Physician] - 1 Week Tye Schwartz MD [Staff Physician] - 1 Week Disposition: HOME - Home Medications Comprehensive Discharge Medication List: Ambulatory Orders Amoxicillin/Potassium Clav [Augmentin 875-125 Tablet] 1 each PO BID #10 tablet 08/18/18 Problem List - Problems (1) Appendicitis Code(s): K37 - UNSPECIFIED APPENDICITIS This patient is new to me today: No Emergency Visit: Yes ED Registration Date: 08/16/18 Care time: The patient presented to the Emergency Department on the above date and was hospitalized for further evaluation of their emergent condition. Critical Care patient: No - Discharge Referral Referred to [facility] Med P.C.: No
[2018-08-18 14:43] VITALS: BP 117/53; PULSE 85
--- NOTE | 2018-08-18 17:04 | PN ---
Teaching Attending Note Name of Resident: Monique Aaron ATTENDING PHYSICIAN STATEMENT I saw and evaluated the patient. I reviewed the resident's note and discussed the case with the resident. I agree with the resident's findings and plan as documented. SUBJECTIVE: Patient is feeling better with no acute distress. No fever or chills. OBJECTIVE: Vital Signs Temperature 98.6 F 08/18/18 14:41 Pulse Rate 85 08/18/18 14:41 Respiratory Rate 18 08/18/18 14:41 Blood Pressure 117/53 L 08/18/18 14:41 O2 Sat by Pulse Oximetry (%) 94 L 08/18/18 09:00 GENERAL: The patient is awake, alert, and fully oriented, in no acute distress. EYES: PEERLA: EOMI; no scleral icterus NECK: no JVD; no lymphadenopathy LUNGS: CTA B/L; no rales, rhonchi or wheezing HEART: Regular rate and rhythm, S1, S2 without murmur, rub or gallop. ABDOMEN: Soft, mild RLQ tenderness on palpation. l EXTREMITIES: 2+ pulses, warm, well-perfused, no edema. PSYCH: Normal mood, normal affect. SKIN: Warm, dry, normal turgor, no rashes or lesions noted CBCD WBC 10.4 K/mm3 (4.0-10.0) H 08/18/18 06:00 RBC 4.13 M/mm3 (4.00-5.60) 08/18/18 06:00 Hgb 13.0 GM/dL (11.7-16.9) 08/18/18 06:00 Hct 37.6 % (35.4-49) 08/18/18 06:00 MCV 91.1 fl (80-96) 08/18/18 06:00 MCHC 34.6 g/dl (32.0-35.9) 08/18/18 06:00 RDW 12.9 % (11.9-15.9) 08/18/18 06:00 Plt Count 193 K/MM3 (134-434) 08/18/18 06:00 MPV 9.3 fl (7.5-11.1) 08/18/18 06:00 CMP Sodium 140 mmol/L (136-145) 08/18/18 06:00 Potassium 3.9 mmol/L (3.5-5.1) 08/18/18 06:00 Chloride 109 mmol/L (98-107) H 08/18/18 06:00 Carbon Dioxide 25 mmol/L (21-32) 08/18/18 06:00 Anion Gap 6 MMOL/L (8-16) L 08/18/18 06:00 BUN 17 mg/dL (7-18) 08/18/18 06:00 Creatinine 0.7 mg/dL (0.55-1.3) 08/18/18 06:00 Creat Clearance w eGFR 129.09 (>60) 08/18/18 06:00 Random Glucose 121 mg/dL (74-106) H 08/18/18 06:00 Calcium 8.3 mg/dL (8.5-10.1) L 08/18/18 06:00 Total Bilirubin 0.4 mg/dL (0.2-1) 08/18/18 06:00 AST 11 U/L (15-37) L 08/18/18 06:00 ALT 36 U/L (13-61) 08/18/18 06:00 Alkaline Phosphatase 81 U/L (45-117) 08/18/18 06:00 Total Protein 6.4 g/dl (6.4-8.2) 08/18/18 06:00 Albumin 3.2 g/dl (3.4-5.0) L 08/18/18 06:00 Home Medications Medication Instructions Recorded Amoxicillin/Potassium Clav 1 each PO BID #10 tablet 08/18/18 [Augmentin 875-125 Tablet] ASSESSMENT AND PLAN: Patient is a 32 year old male with no PMhx and no PCP presented with periumbilical pain with N/V x5 admitted for acute appendicitis #POD #1 s/p post lap. appendectomy due to appendicitis, s/p ceftriaxone and flagyl, zofran, morphine , discharge patient home on Augmentin 875 bid, continue , incentive spirometer, follow up with within a week. will discharge patient home on Augmentin 875mg po bid x 5 days # Elevated blood sugar with hgA1c of 6, recommeded low fat/low carb diet # DVTS: SCDS ; Hep SQ # Full code
--- NOTE | 2018-08-19 16:32 | PATH ---
Surgical Pathology Report Patient Name: LUCA CASTANO Med. Rec. #: [id number] /Age/Gender: 1985 (Age: 32) / M Account: [id number] Location: [facility] MED/SURG Taken: 08/17/2018 Received: 08/18/2018 Reported: 08/19/2018 Physicians: Tye Schwartz M.D. Specimen(s) Received APPENDIX Clinical History Acute appendicitis Final Diagnosis APPENDIX, APPENDECTOMY: ACUTE APPENDICITIS AND PERIAPPENDICITIS. Electronically Signed Edith Kemp M.D. Gross Description Specimen is received in formalin, labeled "appendix", and consists of an appendix, measuring 7cm in length and 1.2cm in average diameter. The serosal (external) surface of the appendix is dull and covered by purulent material. On opening the appendix contains purulent and hemorrhagic material. The mucosal surface is red-brown and ulcerated. Contact Acid Plant Operator sections are submitted in one cassette. KRYSTAL/08/18/2018 vahid/08/18/2018
== END 2018-08-18 16:01 | disposition home or self-care (01) | DRG 225 ==
LOC: JER 15:38 → JERBED 21:57 → J7W 08-17 00:08
PROVIDERS: ADMIT Internal Medicine; ATTEND Internal Medicine
PROC: 3E1M38Z Irrigation of Peritoneal Cavity using Irrigating Substance, Percutaneous Approach (ICD-10-PCS; 2018-08-17)
PROC: 0DTJ4ZZ Resection of Appendix, Percutaneous Endoscopic Approach (ICD-10-PCS; principal; 2018-08-17 12:30)
DX: K35.80 Unspecified acute appendicitis (principal); E66.9 Obesity, unspecified; Z68.34 Body mass index [BMI] 34.0-34.9, adult; R73.9 Hyperglycemia, unspecified
CPT/HCPCS: 36415; 74019-TC-FY; 74176-TC; 80053; 81003; 82150; 82962; 83036; 83690; 83735; 84100; 85025; 85027; 85610; 85730; 86850; 86900; 86901; 88304-TC; 93005; 93010; 94760; 99285-25; J1644; J7030